=== PATIENT | male | born 1995 | race Caucasian/White ===

== ENCOUNTER 2017-10-08 11:21 | Emergency (ER) | payer MEDICAID, OTHER ==
[~2017-10-08] VITALS: Ht 165.1 cm; Wt 59.0 kg
[~2017-10-08 11:21] MED LIST: KEPPRA500 MG ORAL
[2017-10-08] MEDS ORDERED: KEPPRA500 M4 ORAL ×2 (11:26→12:48)
[2017-10-08] MEDS ORDERED: levETIRAcetam 1,500 MG in D5W 95 ML IVPB SCH (11:45)
[2017-10-08 12:00] VITALS: BP 94/72
[2017-10-08 12:00] LABS: BILIRUBIN, URINE NEGATIVE (NEGATIVE); GLUCOSE, URINE (UA) NEGATIVE (NEGATIVE); KETONES,URINE 1+ (NEGATIVE); LEUKOCYTE ESTERASE ,URINE NEGATIVE (NEGATIVE); NITRITE,URINE NEGATIVE (NEGATIVE); PH,URINE 6 (4.5-8.0); PROTEIN,URINE 3+ (NEGATIVE); UROBILINOGEN,URINE NORMAL MG/DL (0.0-1.0)
[2017-10-08 12:01] LABS: BASOPHILS % (AUTO) 0.8 % (0.0-2.0); EOSINOPHILS % (AUTO) 0.1 % (0.0-3.0); HEMATOCRIT 50.9 % (42.0-52.0); HEMOGLOBIN 17.2 G/DL (14.2-18.0); LYMPHOCYTES % (AUTO) 19.1 % (20.0-45.0); MEAN CORPUSCULAR VOLUME 87 FL (80-99); MONOCYTES % (AUTO) 6.7 % (1.0-10.0); NEUTROPHILS % (AUTO) 73.3 % (45.0-75.0); PLATELET COUNT 332 K/UL (150-450); RED BLOOD COUNT 5.88 M/UL (4.70-6.10); RED CELL DISTRIBUTION WIDTH 11.4 % (11.6-14.8); WHITE BLOOD COUNT 8.6 K/UL (4.8-10.8)
--- NOTE | 2017-10-08 12:13 | Diagnostic Imaging Report ---
Indication: Dyspnea Comparison: None A single view chest radiograph was obtained. Findings: Cardiomediastinal appearance is within normal limits for age. Pulmonary vascularity is appropriate. The diaphragmatic contour is smooth and costophrenic angles are sharp. No pleural effusions are identified. The bones are unremarkable. Impression: No acute findings
[2017-10-08 12:14] LABS: APPEARANCE,URINE CLEAR; COLOR,URINE YELLOW
[2017-10-08] MEDS ORDERED: levETIRAcetam 500mg vial IV ONE (12:29)
[2017-10-08 12:38] LABS: BLOOD UREA NITROGEN 6 mg/dL (7-18); CARBON DIOXIDE 24 MMOL/L (21-32); CHLORIDE 100 MMOL/L (98-107); CREATININE 1.1 MG/DL (0.55-1.30); POTASSIUM 3.6 MMOL/L (3.5-5.1)
[2017-10-08 12:42] LABS: ALANINE AMINOTRANSFERASE 31 U/L (12-78); ALBUMIN 4.5 G/DL (3.4-5.0); ALBUMIN/GLOBULIN RATIO 1.2 (1.0-2.7); ALKALINE PHOSPHATASE 78 U/L (46-116); ASPARTATE AMINO TRANSFERASE 43 U/L (15-37); BILIRUBIN,TOTAL 0.4 MG/DL (0.2-1.0)
--- NOTE | 2017-10-08 12:48 | Emergency Room Report ---
History of Present Illness General Chief Complaint: Seizure Source: Patient, EMS Present Illness HPI 22-year-old male p/w seizure. Patient had witnessed seizure, generalized tonic clonic, lasted less than 2 minutes. Did not hit head on ground. no tongue biting, no urinary incontinence. Patient has had seizures for several years. Anti seizure medications include Keppra. Patient has run out of his medications for the last 2 weeks because he has not been able to get a refill No recent fever, chills, chest pain, sob, cough, n/v/d, abdominal pain. Denies hx of alcohol abuse or any drug abuse. Currently denying GEE, neck pain, blurry vision, motor or sensory weakness. Last seizure was one month ago Allergies: Coded Allergies: No Known Allergies (Unverified , 08/20/15) Patient History Past Medical History: see triage record Past Surgical History: none Pertinent Family History: none Reviewed Nursing Documentation: PMH: Agreed, PSxH: Agreed Nursing Documentation-PMH Hx Seizures: Yes - "Migraines" Review of Systems All Other Systems: negative except mentioned in HPI Physical Exam Vital Signs Date Time Temp Pulse Resp B/P (MAP) Pulse Ox O2 Delivery O2 Flow Rate FiO2 10/08/17 11:22 98.7 90 16 94/72 97 Room Air 98.8 Sp02 EP Interpretation: reviewed, normal General Appearance: normal inspection, well appearing, no apparent distress, alert, GCS 15, non-toxic Head: normocephalic, atraumatic Eyes: bilateral eye normal inspection, bilateral eye PERRL, bilateral eye EOMI ENT: normal ENT inspection, normal pharynx, normal voice, moist mucus membranes Neck: normal inspection, full range of motion, supple Respiratory: normal inspection, lungs clear, normal breath sounds, no respiratory distress, no retraction, no wheezing, speaking full sentences, chest symmetrical Cardiovascular #1: normal inspection, regular rate, rhythm, no edema, normal capillary refill Cardiovascular #2: 2+ radial (R), 2+ radial (L) Gastrointestinal: normal inspection, non tender, soft, non-distended, no guarding Musculoskeletal: normal inspection, back normal, normal range of motion, non- tender Neurologic: normal inspection, alert, oriented x3, responsive, child and family counselor III-XII nml as tested, motor strength/tone normal, sensory intact, normal gait, speech normal Psychiatric: normal inspection, judgement/insight normal, memory normal Skin: normal inspection, normal color, no rash, warm/dry, well hydrated, normal turgor Medical Decision Making Diagnostic Impression: Primary Impression: Seizure disorder ER Course 22-year-old male with history of seizures p/w seizure DDX: Primary seizure, triggered by infection UTI/PNA vs. dehydration vs. medication non compliance Electrolyte disturbance: hypoglycemia vs. hyponatremia vs. hypocalcemia vs. hypomagnesemia Cardiac: Arrythmia/acs Intracranial pathology: intracranial bleed, stroke Tox Plan: BGM EKG, UCG Labs, seizure medication levels, tox labs ER course: No further seizures in ED Has been stable during ED stay. AOx4, no neurological signs or symptoms given keppra Disposition: Patient will be discharged to home. Patient instructed to be compliant with anti seizure medications, given a prescription for Keppra Patient is to follow up with their primary care doctor in 5 days and neurologist within 1 week. Strict return precautions discussed such as severe headache, fever, chills, neck pain, prolonged or increased frequency of seizures. Patient verbalized understanding and agrees with plan. EKG Diagnostic Results EP Interpretation: Yes Rate: normal Rhythm: NSR ST Segments: No acute changes ASA given to patient: No Rhythm Strip EP Interpretation: Yes Rate: 100 Rhythm: NSR, no PVCs, no ectopy Chest X-ray CXR: Ordered: Yes 1 view Indication: Seizure EP interpretation: Yes Interpretation: No consolidation, no effusion, no PTX, no acute cardiopulmonary disease Impression: No acute disease Electronically signed by Phi Donnelly MD Laboratory Tests Test 10/08/17 11:39 White Blood Count 8.6 K/UL (4.8-10.8) Red Blood Count 5.88 M/UL (4.70-6.10) Hemoglobin 17.2 G/DL (14.2-18.0) Hematocrit 50.9 % (42.0-52.0) Mean Corpuscular Volume 87 FL (80-99) Mean Corpuscular Hemoglobin 29.3 PG (27.0-31.0) Mean Corpuscular Hemoglobin Concent 33.8 G/DL (32.0-36.0) Red Cell Distribution Width 11.4 % (11.6-14.8) L Platelet Count 332 K/UL (150-450) Mean Platelet Volume 8.1 FL (6.5-10.1) Neutrophils (%) (Auto) 73.3 % (45.0-75.0) Lymphocytes (%) (Auto) 19.1 % (20.0-45.0) L Monocytes (%) (Auto) 6.7 % (1.0-10.0) Eosinophils (%) (Auto) 0.1 % (0.0-3.0) Basophils (%) (Auto) 0.8 % (0.0-2.0) Urine Color Yellow Urine Appearance Clear Urine pH 6 (4.5-8.0) Urine Specific [place] 1.020 (1.005-1.035) Urine Protein 3+ (NEGATIVE) H Urine Glucose (UA) Negative (NEGATIVE) Urine Ketones 1+ (NEGATIVE) H Urine Occult Blood 3+ (NEGATIVE) H Urine Nitrite Negative (NEGATIVE) Urine Bilirubin Negative (NEGATIVE) Urine Urobilinogen Normal MG/DL (0.0-1.0) Urine Leukocyte Esterase Negative (NEGATIVE) Urine RBC 2-4 /HPF (0 - 0) H Urine WBC 0-2 /HPF (0 - 0) Urine Squamous Epithelial Cells Occasional /LPF Urine Bacteria Occasional /HPF (NONE) Urine Mucus Moderate /LPF (NONE/OCC) H Sodium Level 140 MMOL/L (136-145) Potassium Level 3.6 MMOL/L (3.5-5.1) Chloride Level 100 MMOL/L (98-107) Carbon Dioxide Level 24 MMOL/L (21-32) Blood Urea Nitrogen 6 mg/dL (7-18) L Creatinine 1.1 MG/DL (0.55-1.30) Estimate Glomerular Filtration Rate > 60 mL/min (>60) Glucose Level 79 MG/DL (74-106) Calcium Level 10.0 MG/DL (8.5-10.1) Total Bilirubin 0.4 MG/DL (0.2-1.0) Aspartate Amino Transferase (AST) 43 U/L (15-37) H Alanine Aminotransferase (ALT) 31 U/L (12-78) Alkaline Phosphatase 78 U/L (46-116) Total Protein 8.2 G/DL (6.4-8.2) Albumin 4.5 G/DL (3.4-5.0) Globulin 3.7 g/dL Albumin/Globulin Ratio 1.2 (1.0-2.7) Salicylates Level 2.8 ug/mL (2.8-20) Acetaminophen Level < 2 MCG/ML (10-30) L Serum Alcohol < 3 mg/dL Last Vital Signs Date Time Temp Pulse Resp B/P (MAP) Pulse Ox O2 Delivery O2 Flow Rate FiO2 10/08/17 12:00 90 16 Room Air 10/08/17 12:00 98.8 94/72 97 98.8 Disposition: HOME, SELF-CARE Condition: Improved Scripts Levetiracetam (KEPPRA) 500 Mg Tablet 500 MG ORAL EVERY 12 HOURS, #60 TAB 0 Refills Prov: Phi Donnelly M.D. 10/08/17 Patient Instructions: Seizure, Adult Phi Donnelly M.D. Oct 08, 2017 12:48
[2017-10-08 13:14] LABS: SODIUM 140 MMOL/L (136-145)
[2017-10-08 13:46] VITALS: BP 118/67
[2017-10-08 14:15] VITALS: BP 118/67
--- NOTE | 2017-10-09 17:02 | Cardiology Report ---
APPROVED REPORT EKG Measurement Heart [id number] Sinus tachycardia Otherwise normal ECG
== END 2017-10-08 14:16 | disposition home or self-care (01) ==
LOC: EDUNIT# 11:21 → EDBD 11:21 → EMR 11:25
DX: G40.409 Other generalized epilepsy and epileptic syndromes, not intractable, without status epilepticus (principal)
CPT/HCPCS: 36415; 71045; 80053; 80329; 81003; 82962; 85025; 93005; 96365; 96375; 99284; J1953

== ENCOUNTER 2018-01-27 15:01 | Emergency (ER) | payer MEDICAID ==
[~2018-01-27] VITALS: Ht 170.2 cm; Wt 65.8 kg
[~2018-01-27 15:01] MED LIST changes: +KEPPRA500 M4 ORAL
[2018-01-27 15:39] LABS: BASOPHILS % (AUTO) 0.9 % (0.0-2.0); EOSINOPHILS % (AUTO) 0.3 % (0.0-3.0); HEMATOCRIT 43.1 % (42.0-52.0); HEMOGLOBIN 15.3 G/DL (14.2-18.0); LYMPHOCYTES % (AUTO) 23.1 % (20.0-45.0); MEAN CORPUSCULAR VOLUME 83 FL (80-99); MONOCYTES % (AUTO) 7.5 % (1.0-10.0); NEUTROPHILS % (AUTO) 68.1 % (45.0-75.0); PLATELET COUNT 246 K/UL (150-450); RED BLOOD COUNT 5.23 M/UL (4.70-6.10); RED CELL DISTRIBUTION WIDTH 10.7 % (11.6-14.8); WHITE BLOOD COUNT 6.4 K/UL (4.8-10.8)
[2018-01-27 15:53] VITALS: BP 153/84
[2018-01-27 16:00] LABS: ANION GAP 14 mmol/L (5-15); BLOOD UREA NITROGEN 8 mg/dL (7-18); CALCIUM 8.9 MG/DL (8.5-10.1); CARBON DIOXIDE 24 MMOL/L (21-32); CHLORIDE 99 MMOL/L (98-107); CREATININE 1.2 MG/DL (0.55-1.30); POTASSIUM 3.2 MMOL/L (3.5-5.1); SODIUM 137 MMOL/L (136-145)
[2018-01-27 16:04] LABS: ALANINE AMINOTRANSFERASE 32 U/L (12-78); ALBUMIN 4.1 G/DL (3.4-5.0); ALBUMIN/GLOBULIN RATIO 1.2 (1.0-2.7); ALKALINE PHOSPHATASE 67 U/L (46-116); ASPARTATE AMINO TRANSFERASE 27 U/L (15-37); BILIRUBIN,TOTAL 0.9 MG/DL (0.2-1.0)
[2018-01-27 19:20] VITALS: BP 105/57
[2018-01-27 20:09] VITALS: BP 105/57
--- NOTE | 2018-01-27 21:32 | Emergency Room Report ---
History of Present Illness General Chief Complaint: Altered Level of Consciousness Source: Patient, EMS Present Illness HPI 22-year-old male presents ED for altered mental status. Found on the street. Bystanders called 911. Patient is lethargic upon arrival but states that he "smoked weed". Denies any other drug use. Denies any headache or blurry vision. Denies nausea or vomiting. Denies alcohol use. Denies chest pain or shortness of breath. No other aggravating relieving factors. Denies any other associated symptoms Allergies: Coded Allergies: No Known Allergies (Unverified , 08/20/15) Patient History Past Medical History: seizures Past Surgical History: none Pertinent Family History: none Social History: Denies: smoking, alcohol use, drug use Immunizations: UTD Reviewed Nursing Documentation: PMH: Agreed; PSxH: Agreed Nursing Documentation-PMH Past Medical History: No History, Except For Hx Seizures: Yes Review of Systems All Other Systems: negative except mentioned in HPI Physical Exam Vital Signs Date Time Temp Pulse Resp B/P (MAP) Pulse Ox O2 Delivery O2 Flow Rate FiO2 01/27/18 14:57 98.4 121 20 132/78 99 Room Air 98.4 Sp02 EP Interpretation: reviewed, normal General Appearance: no apparent distress, GCS 15, non-toxic, lethargic, thin Head: normocephalic, atraumatic Eyes: bilateral eye normal inspection, bilateral eye other - dilated pupils ENT: hearing grossly normal, normal pharynx, no angioedema, normal voice Neck: full range of motion, supple/symm/no masses Respiratory: chest non-tender, lungs clear, normal breath sounds, speaking full sentences Cardiovascular #1: regular rate, rhythm, no edema Cardiovascular #2: 2+ carotid (R), 2+ carotid (L), 2+ radial (R), 2+ radial (L) , 2+ dorsalis pedis (R), 2+ dorsalis pedis (L) Gastrointestinal: normal bowel sounds, non tender, soft, non-distended, no guarding, no rebound Rectal: deferred Genitourinary: normal inspection, no CVA tenderness Musculoskeletal: back normal, gait/station normal, normal range of motion, non- tender Neurologic: other - lethargic Psychiatric: other - lethargic Reflexes: 3+ bicep (R), 3+ bicep (L), 3+ tricep (R), 3+ tricep (L), 3+ knee (R) , 3+ knee (L) Skin: normal color, no rash, warm/dry, well hydrated Lymphatic: no adenopathy Medical Decision Making Diagnostic Impression: Primary Impression: Substance abuse Additional Impression: Altered level of consciousness ER Course Hospital Course 22-year-old M presents to ED with altered mental status Differential diagnoses include: Psychosis, EtOH, drug abuse Clinical course patient placed on stretcher. On cardiac exercise specialist. After initial history and physical ordered labs, IV fluids, CT brain. Labs reviewed-electrolytes okay, no leukocytosis, hemoglobin/hematocrit stable, tox panel + amphetamines, THC CT brain shows no acute pathology Patient allowed to rest. Now more awake oriented 3. Safe for discharge i. I feel this is a highly complex case requiring extensive working including EKG/Rhythm strip, Xray/CT/US, Blood/urine lab work, repeat exams while in ED, and administration of strong opiates/narcotics for pain control, admission to hospital or close patient follow up. Diagnosis -substance abuse, ALOC Stable and discharged to home. Followup with PMD. Return to ED if symptoms recur or worsen Labs Test 01/27/18 15:10 01/27/18 17:00 White Blood Count 6.4 K/UL (4.8-10.8) Red Blood Count 5.23 M/UL (4.70-6.10) Hemoglobin 15.3 G/DL (14.2-18.0) Hematocrit 43.1 % (42.0-52.0) Mean Corpuscular Volume 83 FL (80-99) Mean Corpuscular Hemoglobin 29.3 PG (27.0-31.0) Mean Corpuscular Hemoglobin Concent 35.5 G/DL (32.0-36.0) Red Cell Distribution Width 10.7 % (11.6-14.8) Platelet Count 246 K/UL (150-450) Mean Platelet Volume 7.9 FL (6.5-10.1) Neutrophils (%) (Auto) 68.1 % (45.0-75.0) Lymphocytes (%) (Auto) 23.1 % (20.0-45.0) Monocytes (%) (Auto) 7.5 % (1.0-10.0) Eosinophils (%) (Auto) 0.3 % (0.0-3.0) Basophils (%) (Auto) 0.9 % (0.0-2.0) Sodium Level 137 MMOL/L (136-145) Potassium Level 3.2 MMOL/L (3.5-5.1) Chloride Level 99 MMOL/L (98-107) Carbon Dioxide Level 24 MMOL/L (21-32) Anion Gap 14 mmol/L (5-15) Blood Urea Nitrogen 8 mg/dL (7-18) Creatinine 1.2 MG/DL (0.55-1.30) Estimat Glomerular Filtration Rate > 60 mL/min (>60) Glucose Level 132 MG/DL (74-106) Calcium Level 8.9 MG/DL (8.5-10.1) Total Bilirubin 0.9 MG/DL (0.2-1.0) Aspartate Amino Transf (AST/SGOT) 27 U/L (15-37) Alanine Aminotransferase (ALT/SGPT) 32 U/L (12-78) Alkaline Phosphatase 67 U/L (46-116) Total Protein 7.5 G/DL (6.4-8.2) Albumin 4.1 G/DL (3.4-5.0) Globulin 3.4 g/dL Albumin/Globulin Ratio 1.2 (1.0-2.7) Salicylates Level 1.4 ug/mL (2.8-20) Acetaminophen Level < 2 MCG/ML (10-30) Serum Alcohol < 3 mg/dL Urine Opiates Screen Negative (NEGATIVE) Urine Barbiturates Screen Negative (NEGATIVE) Phencyclidine (PCP) Screen Negative (NEGATIVE) Urine Amphetamines Screen Positive (NEGATIVE) Urine Benzodiazepines Screen Negative (NEGATIVE) Urine Cocaine Screen Negative (NEGATIVE) Urine Marijuana (THC) Screen Positive (NEGATIVE) CT/MRI/US Diagnostic Results CT/MRI/US Diagnostic Results : Imaging Test Ordered: CT HEad Impression no acute process Last Vital Signs Date Time Temp Pulse Resp B/P (MAP) Pulse Ox O2 Delivery O2 Flow Rate FiO2 01/27/18 20:09 98.4 85 21 105/57 99 Room Air 98.4 Status: improved Disposition: HOME, SELF-CARE Condition: Stable Patient Instructions: Stimulant Use Disorder-Methamphetamines Edi Sanchez MD Jan 27, 2018 21:32
--- NOTE | 2018-01-28 10:38 | Diagnostic Imaging Report ---
Indications: Altered mental status Technique: Spiral acquisitions obtained through the brain. Angled axial and coronal 5 x 5 mm slices were reconstructed. Total dose length product 1379.12 mGycm. CTDI vol(s) 70.38 mGy. Dose reduction achieved using automated exposure control Comparison: None. Findings: Unusual cortical and white matter encephalomalacia or abnormal gyration is seen in the bilateral posterior parietal lobes, unchanged from previous. Otherwise normal size ventricles and extra axial CSF spaces. No acute intracranial hemorrhage or edema. No mass effect nor midline shift. Normal [place]-white differentiation. Intact calvarium. Visualized orbits and sinuses are unremarkable. 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 The CT scanner at [facility] is accredited by the [employer] and the scans are performed using protocols designed to limit radiation exposure to as low as reasonably achievable to attain images of sufficient resolution adequate for diagnostic evaluation.
== END 2018-01-27 20:09 | disposition home or self-care (01) ==
LOC: EDBD 15:01 → EMR 15:45
DX: F19.10 Other psychoactive substance abuse, uncomplicated (principal); R41.82 Altered mental status, unspecified
CPT/HCPCS: 36415; 70450; 80053; 80307; 80329; 85025; 96374; 96375; 99284